=== PATIENT | male | born 1970 ===

== ENCOUNTER 2016-08-08 19:30 | Emergency (ER) | payer OTHER ==
[2016-08-08 19:30] VITALS: BMI 37.8
[2016-08-08 19:57] VITALS: RESP 16; TEMP 99.7; O2SAT 100
[2016-08-08] MEDS ORDERED: Sodium Chloride 0.9% 1,000 ML IV STA ×2 (19:57→21:32)
[2016-08-08 20:45] LABS: BASO % 0.8 % (0.0-2.0); EOS % 0.5 % (0.0-4.0); HEMATOCRIT 41.8 % (35.0-51.0); LYMPH # 0.7 K/uL (1.0-4.3); LYMPH % 10.9 % (20.0-40.0); MEAN CELL VOLUME 91.8 fl (80.0-94.0); MEAN CORPUSCULAR HEMOGLOBIN 30.6 pg (27.0-31.0); MEAN CORPUSCULAR HGB CONC 33.3 g/dL (33.0-37.0); MEAN PLATELET VOLUME 8.9 fl (7.2-11.7); MONO # 0.6 K/uL (0.0-0.8); MONO % 10.2 % (0.0-10.0); NEUT # 4.9 K/uL (1.8-7.0); NEUT % 77.6 % (50.0-75.0); NRBC % 0.1 % (0.0-0.0); RED CELL DISTRIBUTION WIDTH 13.4 % (11.5-14.5); WHITE BLOOD COUNT 6.3 K/uL (4.8-10.8)
--- NOTE | 2016-08-08 20:45 | ED PDOC ---
HPI: General Adult Time Seen by Provider: 08/08/16 19:47 Chief Complaint (Nursing): Dizziness/Lightheaded Chief Complaint (Provider): Dizziness/Lightheaded History Per: Patient History/Exam Limitations: no limitations Onset/Duration Of Symptoms: Days (x2) Current Symptoms Are (Timing): Still Present Additional Complaint(s): 19:47 Terrell Dotson is a 46 year old male with a history of diverticulitis that presents to the ED with a chief complaint of lihgtheadedness, dizziness, and cough, with associated symptoms of a sore throat, lymph node swelling, and chills. Patient denies any fever or taking any medication for his pain, but states that he feels like "he may pass out." Past Medical History Reviewed: Historical Data, Nursing Documentation, Vital Signs Vital Signs: Last Vital Signs Temp 99.7 F H 08/08/16 19:36 Pulse 83 08/08/16 22:08 Resp 16 08/08/16 20:32 BP 125/67 08/08/16 22:08 Pulse Ox 100 08/08/16 20:59 - Medical History PMH: Diverticulitis Denies: Chronic Kidney Disease - Family History Family History: States: Other - Home Medications Home Medications: Ambulatory Orders Medication Instructions Recorded Amoxicillin/Clavulanate [Augmentin 1 tab PO BID #14 tab 08/08/16 875 MG-125 MG] Ibuprofen [Motrin Tab] 600 mg PO Q8 PRN #60 tab 08/08/16 Meclizine [Antivert] 25 mg PO Q6 PRN #30 tab 08/08/16 Oseltamivir [Tamiflu] 75 mg PO BID #10 cap 08/08/16 - Allergies Allergies/Adverse Reactions: Allergies Allergy/AdvReac Type Severity Reaction Status Date / Time No Known Allergies Allergy Unverified 09/22/12 09:04 Review of Systems Constitutional: Positive for: Chills, Other (light headed). Negative for: Fever ENT: Positive for: Throat Pain (sore throat), Other (lymph node swelling). Negative for: Nose Discharge Cardiovascular: Negative for: Edema Musculoskeletal: Negative for: Neck Pain (no neck stiffness) Skin: Negative for: Rash Neurological: Positive for: Dizziness. Negative for: Headache Physical Exam - Reviewed Nursing Documentation Reviewed: Yes Vital Signs Reviewed: Yes - Physical Exam Appears: Positive for: Non-toxic, No Acute Distress (tired-appearing) Head Exam: Positive for: ATRAUMATIC, NORMOCEPHALIC Skin: Positive for: Warm, Dry. Negative for: Rash ENT: Positive for: Pharynx Is (erythematous), Other (tonsils erythematous, bilateral submandibular lymphadenopathy). Negative for: Tonsillar Exudate, Tonsillar Swelling Cardiovascular/Chest: Positive for: Regular Rate, Rhythm. Negative for: Murmur Respiratory: Positive for: Normal Breath Sounds. Negative for: Wheezing Neurologic/Psych: Positive for: Alert, Oriented - Laboratory Results Result Diagrams: 08/08/16 20:36 08/08/16 20:36 - ECG O2 Sat by Pulse Oximetry: 100 (RA) Pulse Ox Interpretation: Normal Medical Decision Making Medical Decision Makin:57 Initial Impression: Upper Respiratory Infection, ddx include Viral Syndrome vs. Influenza vs. Pharyngitis vs. Pneumonia Initial Plan: * CMP * CBC * Lactic Acid * Magnesium * Phosphorous * EKG * Chest X-Ray * [place] Swab * Flu Swab * Rapid Strep * Tylenol 975 mg PO * Toradol 30 mg IV * Sodium Chloride 1000 mL at 1000 mL/hr * Tamiflu camp 75 mg PO * Reevaluation * 2230 Pt feels better s/p IVF, above meds and meclizine. Still had generalized weakness. DW pt findings and plan of care. Scribe Attestation: Documented by Kathia Dickinson, acting as a scribe for Pat Jacob MD. Provider Scribe Attestation: All medical record entries made by the Scribe were at my direction and personally dictated by me. I have reviewed the chart and agree that the record accurately reflects my personal performance of the history, physical exam, medical decision making, and the department course for this patient. I have also personally directed, reviewed, and agree with the discharge instructions and disposition. Disposition - Clinical Impression Clinical Impression: Dizziness, Viral syndrome - Disposition Referrals: [facility] [Outside] (FOLLOW UP WITH A PMD THURSDAY FOR REEVALUATION) Disposition: Routine/Home Disposition Time: 22:30 Condition: IMPROVED Additional Instructions: DRINK PLENTY OF HYDRATING FLUIDS AND REST TAKE IBUPROFEN AND/OR TYLENOL NEEDED FOR PAIN AND FEVER START AUGMENTIN IF YOUR CULTURES ARE POSITIVE FOR STREP Prescriptions: Amoxicillin/Clavulanate [Augmentin 875 MG-125 MG] 1 tab PO BID #14 tab Ibuprofen [Motrin Tab] 600 mg PO Q8 PRN #60 tab PRN Reason: Pain, Moderate (4-7) Meclizine [Antivert] 25 mg PO Q6 PRN #30 tab PRN Reason: Dizziness Oseltamivir [Tamiflu] 75 mg PO BID #10 cap Instructions: Pharyngitis (ED), Viral Syndrome (ED), Dizziness (ED) Forms: [facility] ED School/Work Excuse
[2016-08-08 20:58] LABS: ALB/GLOB RATIO 1.2 (1.0-2.1); ALKALINE PHOSPHATASE 76 U/L (38-126); ALT/SGPT 72 U/L (21-72); AST/SGOT 48 U/L (17-59); BILIRUBIN,TOTAL 0.8 mg/dl (0.2-1.3); BLOOD UREA NITROGEN 13 mg/dl (9-20); CALCIUM 9.5 mg/dL (8.4-10.2); CARBON DIOXIDE 24 mmol/L (22-30); CHLORIDE 104 mmol/L (98-107); GFR AFRICAN-AMERICAN > 60; GLUCOSE,RANDOM 100 mg/dL (75-110); PHOSPHOROUS 2.8 mg/dl (2.5-4.5); POTASSIUM 3.9 MMOL/L (3.6-5.0); SODIUM 137 mmol/l (132-148); TOTAL PROTEIN 7.8 G/DL (6.3-8.2)
[2016-08-08 22:09] VITALS: BP 125/67; PULSE 83
--- NOTE | 2016-08-09 06:50 | RAD ---
HISTORY: cough dizziness COMPARISON: No prior. TECHNIQUE: Chest PA and lateral FINDINGS: LUNGS: No active pulmonary disease. PLEURA: No significant pleural effusion identified. No pneumothorax apparent. CARDIOVASCULAR: Normal. OSSEOUS STRUCTURES: No significant abnormalities. VISUALIZED UPPER ABDOMEN: Normal. OTHER FINDINGS: None. IMPRESSION: No active disease.
--- NOTE | 2016-08-09 11:22 | CARD ---
APPROVED REPORT EKG Measurement Heart [id number] <Conclusion> Normal sinus rhythm Normal ECG
== END 2016-08-08 23:22 | disposition home or self-care (01) ==
LOC: H.ER 19:30
DX: B34.9 Viral infection, unspecified (principal); R05 Cough; J02.9 Acute pharyngitis, unspecified; R42 Dizziness and giddiness; R53.1 Weakness
CPT/HCPCS: 71020; 80053; 83605; 83735; 84100; 85025; 86308; 87040; 87070; 87430; 87804; 93005; 96361; 96374; 99283; J1885; J7040